=== PATIENT | female | born 1985 | race Caucasian/White ===

== ENCOUNTER 2016-07-03 14:22 | Emergency (ER) | payer SELFPAY ==
[~2016-07-03 14:22] MED LIST: ADV250INH INH; ATOM40CA PO; FOLI1TAB2 PO; IBUP200T45 PO; MONT10TA2 PO; MULTCAP9 PO; PROA1AER IN; QUET20XRTB PO; THIA100TA PO; VIST50CA PO; ZOVI5CRE4 EX
[2016-07-03] MEDS ORDERED: IPRATROPIUM 0.5MG/ALBUTEROL 2.5MG INH SOL UD 3ML (DUONEB)(J7620) As Ordered ONE (15:29)
[2016-07-03] MEDS ORDERED: predniSONE 20 MG TAB As Ordered ONE (15:30)
--- NOTE | 2016-07-03 16:12 | REP ---
Chest two views HISTORY: Cough Comparison: 05/17/2014 The lungs are clear. The heart is normal in size. The pulmonary vasculature is normal in appearance. The bony structure is intact. IMPRESSION: No acute disease. Signed by Robert Tapia MD 07/03/2016 04:03 P
--- NOTE | 2016-07-03 16:21 | EDDOCDS ---
Nurse's Notes [facility] Name: Alpa Kaur Age: 31 yrs Sex: Female : 1985 Arrival Date: 07/03/2016 Time: 14:22 Bed PR Private MD: Jill Headley Diagnosis: Bronchitis, not specified as acute or chronic Presentation: 07/03 14:31 Presenting complaint: Patient states: "passed out" at work, drove to [facility]. States "I ck1 cannot breathe, my asthma is worse". Speaking full sentences without difficulty. Adult Sepsis Screening: The patient does not have new or worsening altered mentation. Patient's respiratory rate is less than 22. Systolic blood pressure is greater than 100. Patient has a qSOFA score of 0- Negative Sepsis Screen. Suicide/Homicide risk assessment- the patient denies having any suicidal and/or homicidal ideations and does not present with any other emotional, behavioral or mental health complaints. 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 Transition of care: patient was not received from another setting of care. 14:31 Acuity: JOEY Level 3 ck1 14:31 Method Of Arrival: Walkin/Carried/Asstd ck1 Triage Assessment: 14:34 General: Appears in no apparent distress, comfortable, Behavior is appropriate for age, ck1 cooperative. Pain: Location: chest Pain currently is 4 out of 10 on a pain scale. HIV screening NA for this visit Offered previously. Neurological: Level of Consciousness is awake, alert, obeys commands, Oriented to person, place, time. Respiratory: Respiratory effort is unlabored, Respiratory pattern is regular, symmetrical. GI: No deficits noted. Derm: Skin is pink, warm & dry. 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 proair inhaler 90 mcg 2 puff every 4 hours as needed for Eye Disorder (Last dose: 07/03/2016 13:33) - PMHx: Asthma; Bipolar disorder; - PSHx: none; - Social history: Smoking status: Patient states was never smoker of tobacco. No barriers to communication noted, The patient speaks fluent Jamaican, Speaks appropriately for age. - Family history: Not pertinent. - : The pt / caregiver states he / she is not on anticoagulants. Home medication list is obtained from the patient. - Exposure Risk Screening:: None identified. Screenin:18 Screening information is obtained from the patient. Fall risk: No risks identified. ck1 Assistance ADL's: requires no assistance with activities of daily living. Abuse/DV Screen: The patient / caregiver reports he/she is: not in a situation that causes fear, pain or injury. Nutritional screening: No deficits noted. Advance Directives: Currently, there is no health care proxy. home support is adequate. Assessment: 16:19 General: Appears in no apparent distress, comfortable, Behavior is appropriate for age, ck1 cooperative. Pain: Denies pain. Neurological: Level of Consciousness is awake, alert, obeys commands, Oriented to person, place, time. Cardiovascular: Rhythm is sinus rhythm. Respiratory: Respiratory effort is unlabored. Derm: Skin is intact, is healthy with good turgor, Skin is pink, warm & dry. Musculoskeletal: Circulation, motion, and sensation intact Range of motion intact in all extremities. Vital Signs: 14:24 BP 132 / 75; Pulse 91; Resp 18 S; Temp 98.7(O); Pulse Ox 99% on R/A; Weight 108.86 kg gr2 (R); Height 5 ft. 5 in. (165.10 cm) (R); Pain 3/10; 16:20 BP 141 / 75; Pulse 93; Resp 18; Temp 98.2(TE); Pulse Ox 97% on R/A; Pain 0/10; ck1 14:24 Body Mass Index 39.94 (108.86 kg, 165.10 cm) gr2 Vitals: 14:24 Log In Time: July 03, 2016 at 14:24. gr2 14:26 RN notified that patient meets Red Flag criteria. gr2 ED Course: 14:24 Patient visited by Jamey Encinas. gr2 14:24 Jill Headley is Private Physician. gr2 14:24 Patient moved to Waiting gr2 14:26 Patient visited by Jamey Encinas. gr2 14:26 Patient visited by Jamey Encinas. gr2 14:27 Patient moved to Pre RCE gr2 14:33 Triage Initiated ck1 14:44 Patient moved to Triage 3 jrd 15:10 Boogie Bashir [facility]. cc10 15:10 Janette Sullivan MD is Attending Physician. cc10 15:10 Patient visited by Boogie Bashir PA-C. cc10 15:10 Patient visited by Boogie Bashir PA-C. cc10 15:19 Patient visited by Boogie Bashir PA-C. cc10 15:27 Patient moved to PR / ead 15:32 Patient visited by Vanessa Yip RN. ck1 16:12 Jill Headley is Referral Physician. cc10 16:19 The patient / caregiver is instructed regarding the plan of care and ED course. ck1 16:19 No IV's were initiated during this patient's visit. No procedures done that require ck1 assistance. 16:20 [facility] [place] Payment Agreement was scanned into [employer] and attached to record. jp5 16:20 Chest, 2 View (pa\\E\\lat) Returned. EDMS Administered Medications: 15:32 Drug: predniSONE 40 mg [prednisone 20 mg tablet (2 tabs)] Route: PO; ck1 15:34 Drug: Albuterol-Ipratropium 3 ml [ipratropium-albuterol 0.5 mg-3 mg(2.5 mg base)/3 mL rs5 nebulization soln (3 mL)] Route: Inhalation; RT: 15:34 Initial Med Neb Given as ordered Patient was instructed and evaluated on procedure rs5 Patient tolerated procedure well without adverse effect. Respiratory: Respiratory effort is even, unlabored, Respiratory pattern is regular symmetrical, Breath sounds are clear bilaterally. Breath sounds are diminished Reports shortness of breath on exertion cough that is productive. Order Results: Radiology Order: Chest, 2 View (pa\\E\\lat) Test: Chest, 2 View (pa\\E\\lat) REASON FOR EXAMINATION: Cough; Chest two views; ; HISTORY: Cough; ; Comparison: 05/17/2014; ; The lungs are clear. The heart is normal in size. The pulmonary vasculature is; normal in appearance. The bony structure is intact.; ; IMPRESSION: No acute disease.; ; ; Signed by; Robert Tapia MD 07/03/2016 04:03 P; Outcome: 16:12 Discharge ordered by Provider. cc10 16:18 Discharge Assessment: Patient awake, alert and oriented x 3. No cognitive and/or ck1 functional deficits noted. Patient verbalized understanding of disposition instructions. patient administered narcotics - no. The following High Risk Discharge criteria are identified: None. Discharged to home ambulatory. Condition: stable. Discharge instructions given to patient, Instructed on discharge instructions, follow up and referral plans. medication usage, Demonstrated understanding of instructions, medications, Pt was receptive of discharge instructions/ teaching. Prescriptions given X 2. No special radiology studies were completed. Property :Personal belongings accompany Pt. 16:21 Patient left the ED. ck1 Signatures: Dispatcher [employer] EDMS Vanessa Yip,RN RN ck1 Diallo Iqbal,RT RT rs5 Jamey Encinas gr2 Tisha Campoverde,RN RN Boogie Hawkins, PA-C PA-C cc10 Hermann Gómez, WENDI WEED COOKING OPERATOR jrd Jose Taveras jp5 MTDD
--- NOTE | 2016-07-03 16:21 | EDDOCDS ---
Physician Documentation [facility] Name: Alpa Kaur Age: 31 yrs Sex: Female : 1985 Arrival Date: 07/03/2016 Time: 14:22 Bed PR Private MD: Jill Headley Disposition: 07/03/16 16:12 Discharged to Home/Self Care. Impression: Bronchitis, not specified as acute or chronic. - Condition is Stable. - Discharge Instructions: Acute Bronchitis. - Prescriptions for Prednisone 20 mg Oral Tablet - take 1 tablet by ORAL route once daily for 5 days; 5 tablet. Albuterol Sulfate 90 mcg/actuation Inhalation HFA Aerosol Inhaler - inhale 2 puff by INHALATION route every 4 hours As needed; 1 Inhaler. - Medication Reconciliation, Work Release Form - 1 day, Local Pharmacy Hours form. - Follow up: Emergency Department; When: As needed; Reason: Worsening of conditions. Follow up: Jill Headley; When: Call to arrange an appointment; Reason: Wound/Symptom Recheck, Recheck today's complaints, Worsening of conditions, Continuance of care. - Problem is new. - Symptoms have improved. Historical: - Allergies: No known drug Allergies; - Home Meds: 1. proair inhaler 90 mcg 2 puff every 4 hours as needed for Eye Disorder (Last dose: 07/03/2016 13:33) - PMHx: Asthma; Bipolar disorder; - PSHx: none; - Social history: Smoking status: Patient states was never smoker of tobacco. No barriers to communication noted, The patient speaks fluent Romansh, Speaks appropriately for age. - Family history: Not pertinent. - : The pt / caregiver states he / she is not on anticoagulants. Home medication list is obtained from the patient. - Exposure Risk Screening:: None identified. 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 5 in. (165.10 cm) (R); Pain 3/10; 16:20 BP 141 / 75; Pulse 93; Resp 18; Temp 98.2(TE); Pulse Ox 97% on R/A; Pain 0/10; ck1 14:24 Body Mass Index 39.94 (108.86 kg, 165.10 cm) gr2 MDM: 15:26 Albuterol-Ipratropium 3 ml Inhalation once ordered. cc10 15:26 Call Respiratory ordered. cc10 15:26 predniSONE 40 mg PO once; administer with food or milk ordered. cc10 15:27 Chest, 2 View (pa\E\lat) Ordered. EDMS 15:27 Call Respiratory complete. ead 16:20 [facility] Payment Agreement was scanned into [employer] and attached to record. jp5 16:21 Financial registration complete. jp5 Administered Medications: 15:32 Drug: predniSONE 40 mg [prednisone 20 mg tablet (2 tabs)] Route: PO; ck1 15:34 Drug: Albuterol-Ipratropium 3 ml [ipratropium-albuterol 0.5 mg-3 mg(2.5 mg base)/3 mL rs5 nebulization soln (3 mL)] Route: Inhalation; Signatures: Dispatcher [employer] EDMS Vanessa YipRN RN ck1 Tisha Campoverde,RN RN ead Boogie Bashir, PAChristineC PA-C cc10 Jose Taveras jp5 Diallo Iqbal RT rs5 The chart was reviewed and I authenticate all verbal orders and agree with the evaluation and treatment provided.Attachments: 16:20 [facility] Payment Agreement jp5 MTDD
--- NOTE | 2016-07-05 17:22 | EDDOCDS ---
Physician Documentation [facility] Name: Alpa Kaur Age: 31 yrs Sex: Female : 1985 Arrival Date: 07/03/2016 Time: 14:22 Bed PR Private MD: Jill Headley Disposition: 07/03/16 16:12 Discharged to Home/Self Care. Impression: Bronchitis, not specified as acute or chronic. - Condition is Stable. - Discharge Instructions: Acute Bronchitis. - Prescriptions for Prednisone 20 mg Oral Tablet - take 1 tablet by ORAL route once daily for 5 days; 5 tablet. Albuterol Sulfate 90 mcg/actuation Inhalation HFA Aerosol Inhaler - inhale 2 puff by INHALATION route every 4 hours As needed; 1 Inhaler. - Medication Reconciliation, Work Release Form - 1 day, Local Pharmacy Hours form. - Follow up: Emergency Department; When: As needed; Reason: Worsening of conditions. Follow up: Jill Headley; When: Call to arrange an appointment; Reason: Wound/Symptom Recheck, Recheck today's complaints, Worsening of conditions, Continuance of care. - Problem is new. - Symptoms have improved. Historical: - Allergies: No known drug Allergies; - Home Meds: 1. proair inhaler 90 mcg 2 puff every 4 hours as needed for Eye Disorder (Last dose: 07/03/2016 13:33) - PMHx: Asthma; Bipolar disorder; - PSHx: none; - Social history: Smoking status: Patient states was never smoker of tobacco. No barriers to communication noted, The patient speaks fluent Ukrainian, Speaks appropriately for age. - Family history: Not pertinent. - : The pt / caregiver states he / she is not on anticoagulants. Home medication list is obtained from the patient. - Exposure Risk Screening:: None identified. 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 5 in. (165.10 cm) (R); Pain 3/10; 16:20 BP 141 / 75; Pulse 93; Resp 18; Temp 98.2(TE); Pulse Ox 97% on R/A; Pain 0/10; ck1 14:24 Body Mass Index 39.94 (108.86 kg, 165.10 cm) gr2 MDM: 15:26 Albuterol-Ipratropium 3 ml Inhalation once ordered. cc10 15:26 Call Respiratory ordered. cc10 15:26 predniSONE 40 mg PO once; administer with food or milk ordered. cc10 15:27 Chest, 2 View (pa\E\lat) Ordered. EDMS 15:27 Call Respiratory complete. ead 16:20 [facility] Payment Agreement was scanned into [employer] and attached to record. jp5 16:21 Financial registration complete. jp5 07/04 10:38 T-Sheet-- Draft Copy was scanned into [employer] and attached to record. gb Administered Medications: 07/03 15:32 Drug: predniSONE 40 mg [prednisone 20 mg tablet (2 tabs)] Route: PO; ck1 15:34 Drug: Albuterol-Ipratropium 3 ml [ipratropium-albuterol 0.5 mg-3 mg(2.5 mg base)/3 mL rs5 nebulization soln (3 mL)] Route: Inhalation; Signatures: Dispatcher [employer] EDMS Alethea Dove, Reg Reg gb Vanessa Yip,RN RN ck1 Tisha CampoverdeRN RN Boogie Hawkins, PA-C PA-C cc10 Jose Taveras jp5 Diallo Iqbal RT rs5 The chart was reviewed and I authenticate all verbal orders and agree with the evaluation and treatment provided.Attachments: 16:20 [facility] Payment Agreement jp5 07/04 10:38 T-Sheet-- Draft Copy gb Chart Complete MTDD
--- NOTE | 2016-07-05 17:22 | EDDOCDS ---
Nurse's Notes [facility] Name: Alpa Kaur Age: 31 yrs Sex: Female : 1985 Arrival Date: 07/03/2016 Time: 14:22 Bed PR Private MD: Jill Headley Diagnosis: Bronchitis, not specified as acute or chronic Presentation: 07/03 14:31 Presenting complaint: Patient states: "passed out" at work, drove to [facility]. States "I ck1 cannot breathe, my asthma is worse". Speaking full sentences without difficulty. Adult Sepsis Screening: The patient does not have new or worsening altered mentation. Patient's respiratory rate is less than 22. Systolic blood pressure is greater than 100. Patient has a qSOFA score of 0- Negative Sepsis Screen. Suicide/Homicide risk assessment- the patient denies having any suicidal and/or homicidal ideations and does not present with any other emotional, behavioral or mental health complaints. 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 Transition of care: patient was not received from another setting of care. 14:31 Acuity: JOEY Level 3 ck1 14:31 Method Of Arrival: Walkin/Carried/Asstd ck1 Triage Assessment: 14:34 General: Appears in no apparent distress, comfortable, Behavior is appropriate for age, ck1 cooperative. Pain: Location: chest Pain currently is 4 out of 10 on a pain scale. HIV screening NA for this visit Offered previously. Neurological: Level of Consciousness is awake, alert, obeys commands, Oriented to person, place, time. Respiratory: Respiratory effort is unlabored, Respiratory pattern is regular, symmetrical. GI: No deficits noted. Derm: Skin is pink, warm & dry. 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 proair inhaler 90 mcg 2 puff every 4 hours as needed for Eye Disorder (Last dose: 07/03/2016 13:33) - PMHx: Asthma; Bipolar disorder; - PSHx: none; - Social history: Smoking status: Patient states was never smoker of tobacco. No barriers to communication noted, The patient speaks fluent Panamanian, Speaks appropriately for age. - Family history: Not pertinent. - : The pt / caregiver states he / she is not on anticoagulants. Home medication list is obtained from the patient. - Exposure Risk Screening:: None identified. Screenin:18 Screening information is obtained from the patient. Fall risk: No risks identified. ck1 Assistance ADL's: requires no assistance with activities of daily living. Abuse/DV Screen: The patient / caregiver reports he/she is: not in a situation that causes fear, pain or injury. Nutritional screening: No deficits noted. Advance Directives: Currently, there is no health care proxy. home support is adequate. Assessment: 16:19 General: Appears in no apparent distress, comfortable, Behavior is appropriate for age, ck1 cooperative. Pain: Denies pain. Neurological: Level of Consciousness is awake, alert, obeys commands, Oriented to person, place, time. Cardiovascular: Rhythm is sinus rhythm. Respiratory: Respiratory effort is unlabored. Derm: Skin is intact, is healthy with good turgor, Skin is pink, warm & dry. Musculoskeletal: Circulation, motion, and sensation intact Range of motion intact in all extremities. Vital Signs: 14:24 BP 132 / 75; Pulse 91; Resp 18 S; Temp 98.7(O); Pulse Ox 99% on R/A; Weight 108.86 kg gr2 (R); Height 5 ft. 5 in. (165.10 cm) (R); Pain 3/10; 16:20 BP 141 / 75; Pulse 93; Resp 18; Temp 98.2(TE); Pulse Ox 97% on R/A; Pain 0/10; ck1 14:24 Body Mass Index 39.94 (108.86 kg, 165.10 cm) gr2 Vitals: 14:24 Log In Time: July 03, 2016 at 14:24. gr2 14:26 RN notified that patient meets Red Flag criteria. gr2 ED Course: 14:24 Patient visited by Jamey Encinas. gr2 14:24 Jill Headley is Private Physician. gr2 14:24 Patient moved to Waiting gr2 14:26 Patient visited by Jamey Encinas. gr2 14:26 Patient visited by Jamey Encinas. gr2 14:27 Patient moved to Pre RCE gr2 14:33 Triage Initiated ck1 14:44 Patient moved to Triage 3 jrd 15:10 Boogie Bashir [facility]-C [facility]. cc10 15:10 Janette Sullivan MD is Attending Physician. cc10 15:10 Patient visited by Boogie Bashir PA-C. cc10 15:10 Patient visited by Boogie Bashir PA-C. cc10 15:19 Patient visited by Boogie Bashir PA-C. cc10 15:27 Patient moved to PR ead 15:32 Patient visited by Vanessa Yip RN. ck1 16:12 Jill Headley is Referral Physician. cc10 16:19 The patient / caregiver is instructed regarding the plan of care and ED course. ck1 16:19 No IV's were initiated during this patient's visit. No procedures done that require ck1 assistance. 16:20 [facility] Payment Agreement was scanned into [employer] and attached to record. jp5 16:20 Chest, 2 View (pa\\E\\lat) Returned. EDMS 16:26 Patient name changed from Alpa\\S\\R\\S\\House\\S\\ to Alpa\\S\\Azul\\S\\House. EDMS 01 10:38 T-Sheet-- Draft Copy was scanned into [employer] and attached to record. gb Administered Medications: 07/03 15:32 Drug: predniSONE 40 mg [prednisone 20 mg tablet (2 tabs)] Route: PO; ck1 15:34 Drug: Albuterol-Ipratropium 3 ml [ipratropium-albuterol 0.5 mg-3 mg(2.5 mg base)/3 mL rs5 nebulization soln (3 mL)] Route: Inhalation; RT: 15:34 Initial Med Neb Given as ordered Patient was instructed and evaluated on procedure rs5 Patient tolerated procedure well without adverse effect. Respiratory: Respiratory effort is even, unlabored, Respiratory pattern is regular symmetrical, Breath sounds are clear bilaterally. Breath sounds are diminished Reports shortness of breath on exertion cough that is productive. Order Results: Radiology Order: Chest, 2 View (pa\\E\\lat) Test: Chest, 2 View (pa\\E\\lat) REASON FOR EXAMINATION: Cough; Chest two views; ; HISTORY: Cough; ; Comparison: 05/17/2014; ; The lungs are clear. The heart is normal in size. The pulmonary vasculature is; normal in appearance. The bony structure is intact.; ; IMPRESSION: No acute disease.; ; ; Signed by; Robert Tapia MD 07/03/2016 04:03 P; Outcome: 16:12 Discharge ordered by Provider. cc10 16:18 Discharge Assessment: Patient awake, alert and oriented x 3. No cognitive and/or ck1 functional deficits noted. Patient verbalized understanding of disposition instructions. patient administered narcotics - no. The following High Risk Discharge criteria are identified: None. Discharged to home ambulatory. Condition: stable. Discharge instructions given to patient, Instructed on discharge instructions, follow up and referral plans. medication usage, Demonstrated understanding of instructions, medications, Pt was receptive of discharge instructions/ teaching. Prescriptions given X 2. No special radiology studies were completed. Property :Personal belongings accompany Pt. 16:21 Patient left the ED. ck1 Signatures: Dispatcher [employer] EDMS Alethea Dove, Reg Reg gb Vanessa Yip,RN RN ck1 Diallo Iqbal,RT RT rs5 Jamey Encinas gr2 Tisha Campoverde,RN RN Boogie Hawkins, PA-C PA-C cc10 Hermann Gómez, PROPERTY ECONOMIST PROPERTY ECONOMIST Jose Barakat jp5 Chart Complete MTDD
--- NOTE | 2016-07-05 17:22 | EDDOCDS ---
Physician Documentation [facility] Name: Alpa Kaur Age: 31 yrs Sex: Female : 1985 Arrival Date: 07/03/2016 Time: 14:22 Bed PR Private MD: Jill Headley Disposition: 07/03/16 16:12 Discharged to Home/Self Care. Impression: Bronchitis, not specified as acute or chronic. - Condition is Stable. - Discharge Instructions: Acute Bronchitis. - Prescriptions for Prednisone 20 mg Oral Tablet - take 1 tablet by ORAL route once daily for 5 days; 5 tablet. Albuterol Sulfate 90 mcg/actuation Inhalation HFA Aerosol Inhaler - inhale 2 puff by INHALATION route every 4 hours As needed; 1 Inhaler. - Medication Reconciliation, Work Release Form - 1 day, Local Pharmacy Hours form. - Follow up: Emergency Department; When: As needed; Reason: Worsening of conditions. Follow up: Jill Headley; When: Call to arrange an appointment; Reason: Wound/Symptom Recheck, Recheck today's complaints, Worsening of conditions, Continuance of care. - Problem is new. - Symptoms have improved. Historical: - Allergies: No known drug Allergies; - Home Meds: 1. proair inhaler 90 mcg 2 puff every 4 hours as needed for Eye Disorder (Last dose: 07/03/2016 13:33) - PMHx: Asthma; Bipolar disorder; - PSHx: none; - Social history: Smoking status: Patient states was never smoker of tobacco. No barriers to communication noted, The patient speaks fluent Bengali, Speaks appropriately for age. - Family history: Not pertinent. - : The pt / caregiver states he / she is not on anticoagulants. Home medication list is obtained from the patient. - Exposure Risk Screening:: None identified. 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 5 in. (165.10 cm) (R); Pain 3/10; 16:20 BP 141 / 75; Pulse 93; Resp 18; Temp 98.2(TE); Pulse Ox 97% on R/A; Pain 0/10; ck1 14:24 Body Mass Index 39.94 (108.86 kg, 165.10 cm) gr2 MDM: 15:26 Albuterol-Ipratropium 3 ml Inhalation once ordered. cc10 15:26 Call Respiratory ordered. cc10 15:26 predniSONE 40 mg PO once; administer with food or milk ordered. cc10 15:27 Chest, 2 View (pa\E\lat) Ordered. EDMS 15:27 Call Respiratory complete. ead 16:20 [facility] Payment Agreement was scanned into [employer] and attached to record. jp5 16:21 Financial registration complete. jp5 07/04 10:38 T-Sheet-- Draft Copy was scanned into [employer] and attached to record. gb Administered Medications: 07/03 15:32 Drug: predniSONE 40 mg [prednisone 20 mg tablet (2 tabs)] Route: PO; ck1 15:34 Drug: Albuterol-Ipratropium 3 ml [ipratropium-albuterol 0.5 mg-3 mg(2.5 mg base)/3 mL rs5 nebulization soln (3 mL)] Route: Inhalation; Signatures: Dispatcher [employer] EDMS Alethea Dove, Reg Reg gb Vanessa Yip,RN RN ck1 Tisha CampoverdeRN RN Boogie Hawkins, PA-C PA-C cc10 Jose Taveras jp5 Diallo Iqbal RT rs5 The chart was reviewed and I authenticate all verbal orders and agree with the evaluation and treatment provided.Attachments: 16:20 [facility] Payment Agreement jp5 07/04 10:38 T-Sheet-- Draft Copy gb Chart Complete MTDD
== END 2016-07-03 16:21 | disposition home or self-care (01) ==
LOC: M ED 14:22
DX: J20.9 Acute bronchitis, unspecified (principal); J45.909 Unspecified asthma, uncomplicated; F31.9 Bipolar disorder, unspecified; Z79.51 Long term (current) use of inhaled steroids

== ENCOUNTER 2016-11-13 14:03 | Emergency (ER) | payer MEDICAID, OTHER, SELFPAY ==
[~2016-11-13] VITALS: Ht 165.1 cm; Wt 113.4 kg
[2016-11-13] MEDS ORDERED: NS 1,000 ML IV ONE (15:00)
[2016-11-13 15:29] LABS: BASO % 0.3 % (0.0-1.0); EOS # 0.2 K/mm3 (0.0-0.50); EOS % 2.7 % (0.0-3.0); LARGE UNSTAINED CELL # 0.1 K/mm3 (0.0-0.4); LARGE UNSTAINED CELL % 1.8 % (0.0-4.0); LYMPH # 1.8 K/mm3 (1.5-6.5); LYMPH % 31.8 % (24.0-44.0); MEAN CORPUSCULAR HEMOGLOBIN 30.9 pg (27.0-33.0); MEAN CORPUSCULAR HGB CONC 33.8 g/dl (32.0-36.5); MEAN CORPUSCULAR VOLUME 91.4 fl (80.0-96.0); MONO # 0.3 K/mm3 (0.0-0.8); MONO % 6.1 % (0.0-5.0); NEUTROPHILS # 3.2 K/mm3 (1.8-7.7); NEUTROPHILS % 57.3 % (36.0-66.0); PLATELET COUNT, AUTOMATED 361 k/mm3 (150-450); RED CELL DISTRIBUTION WIDTH 12.1 % (11.5-14.5); WHITE BLOOD COUNT 5.6 K/mm3 (4.0-10.0)
[2016-11-13 15:35] LABS: ANION GAP 7 MEQ/L (8-16); BLOOD UREA NITROGEN 8 MG/DL (7-18); CALCIUM LEVEL 8.9 MG/DL (8.5-10.1); CARBON DIOXIDE LEVEL 30 MEQ/L (21-32); CHLORIDE LEVEL 103 MEQ/L (98-107); GLOMERULAR FILTRATION RATE > 60.0 (>60); GLUCOSE, FASTING 83 MG/DL (70-105); HCG, SERUM QUANTITATIVE < 1.0 MIU/ML; POTASSIUM SERUM 3.9 MEQ/L (3.5-5.1); SODIUM LEVEL 140 MEQ/L (136-145)
--- NOTE | 2016-11-13 15:59 | REP ---
PELVIC ULTRASOUND: Real-time sonographic evaluation of the pelvis was performed utilizing transabdominal and endovaginal technique. The urinary bladder is empty. The uterus measures 6.8 x 3.6 x 3.6 cm. Endometrial thickness is 6 mm. Right ovary measures 4.3 x 3.8 x 4.7 cm and left ovary 3.8 x 2.5 x 1.7 cm. There is a complex cyst in the right ovary with 3.3 x 2.9 x 3.2 cm. Exophytic complex cystic structure along the right ovary measures 2.9 x 3.3 x 2.8 cm. There is no free fluid. There is no evidence of ovarian torsion with blood flow seen in each ovary with duplex Doppler evaluation. IMPRESSION: Endometrial thickness 6 mm. Two complex cystic structures of the right ovary as discussed above without torsion. Recommend followup ultrasound in 3 months. Signed by Sánchez Hanson MD 11/13/2016 07:14 P
[2016-11-13 16:07] VITALS: BP 126/75
--- NOTE | 2016-11-16 15:07 | ED PDOC ---
Post-Departure Follow-Up dr archer faxed formal report of pelvic us for fu Kassi Conner MD Nov 16, 2016 15:07
== END 2016-11-13 16:11 | disposition home or self-care (01) ==
LOC: M ED 14:21
DX: N92.0 Excessive and frequent menstruation with regular cycle (principal); N83.202 Unspecified ovarian cyst, left side

== ENCOUNTER → 2017-02-13 | Outpatient (CLI) | payer OTHER ==
[~2017-02-13] MED LIST changes: -FOLI1TAB2 PO; +FOLI1TAB4 PO; -PROA1AER IN; +PROAAER10 IN
[2017-02-13 15:48] LABS: ALBUMIN 3.8 GM/DL (3.2-5.2); ALBUMIN/GLOBULIN RATIO 1.06 (1.00-1.93); ALKALINE PHOSPHATASE 53 U/L (45-117); ALT/SGPT 25 U/L (12-78); ANION GAP 6 MEQ/L (8-16); AST/SGOT 15 U/L (15-37); BILIRUBIN,TOTAL 0.2 MG/DL (0.2-1.0); BLOOD UREA NITROGEN 6 MG/DL (7-18); CALCIUM LEVEL 8.8 MG/DL (8.5-10.1); CARBON DIOXIDE LEVEL 30 MEQ/L (21-32); CHLORIDE LEVEL 104 MEQ/L (98-107); CREATININE FOR GFR 0.74 MG/DL (0.55-1.02); GLOMERULAR FILTRATION RATE > 60.0 (>60); GLUCOSE, FASTING 93 MG/DL (70-105); POTASSIUM SERUM 4.1 MEQ/L (3.5-5.1); SODIUM LEVEL 140 MEQ/L (136-145); TOTAL PROTEIN 7.4 GM/DL (6.4-8.2)
[2017-02-13 16:16] LABS: BASO % 0.4 % (0.0-1.0); EOS # 0.1 K/mm3 (0.0-0.50); EOS % 1.6 % (0.0-3.0); LARGE UNSTAINED CELL # 0.1 K/mm3 (0.0-0.4); LARGE UNSTAINED CELL % 2.3 % (0.0-4.0); LYMPH # 1.6 K/mm3 (1.5-6.5); LYMPH % 27.8 % (24.0-44.0); MEAN CORPUSCULAR HEMOGLOBIN 30.7 pg (27.0-33.0); MEAN CORPUSCULAR VOLUME 90.2 fl (80.0-96.0); MONO # 0.4 K/mm3 (0.0-0.8); NEUTROPHILS # 3.1 K/mm3 (1.8-7.7); NEUTROPHILS % 59.9 % (36.0-66.0); PLATELET COUNT, AUTOMATED 289 k/mm3 (150-450); RED CELL DISTRIBUTION WIDTH 12.2 % (11.5-14.5); WHITE BLOOD COUNT 5.2 K/mm3 (4.0-10.0)
[2017-02-23 10:11] LABS: GC Carboxy THC 69 ng/mL (Cutoff=10)
== END ==
LOC: M LAB 13:44
PROVIDERS: ATTEND Registered Nurse Psychiatric/Mental Health
DX: F31.81 Bipolar II disorder (principal)

== ENCOUNTER 2017-05-09 16:21 | Emergency (ER) | payer OTHER ==
[~2017-05-09] VITALS: Ht 165.1 cm; Wt 118.0 kg
[2017-05-09] MEDS ORDERED: TRAZ1TAB14 PO (16:40)
[2017-05-09] MEDS ORDERED: ADDE10CA3 PO (16:40)
[2017-05-09] MEDS ORDERED: ALBUTEROL SULFATE 2.5 MG/0.5 ML INH NEB SOLN NEB ONE (18:00)
[2017-05-09] MEDS ORDERED: ALBUTEROL 90 MCG/ACT 8GM HFA INHALER INH ONE (18:15)
[2017-05-09] MEDS ORDERED: VENTAER IN (18:42)
[2017-05-09 18:54] VITALS: BP 127/75
--- NOTE | 2017-05-09 18:57 | REP ---
Clinical: Asthma with shortness of breath. Comparison: 07/03/2016 . Technique: PA and lateral. Findings: The mediastinum and cardiac silhouette are normal. The lung zeng are clear and without acute consolidation, effusion, or pneumothorax. The skeletal structures are intact and normal. Impression: 1. No acute cardiopulmonary process. Signed by Lazaro Lehman MD 05/09/2017 06:49 P
== END 2017-05-09 18:58 | disposition home or self-care (01) ==
LOC: M ED 16:21
DX: R06.00 Dyspnea, unspecified (principal); Z76.0 Encounter for issue of repeat prescription; J45.909 Unspecified asthma, uncomplicated; F31.9 Bipolar disorder, unspecified; F41.9 Anxiety disorder, unspecified; Z79.899 Other long term (current) drug therapy

== ENCOUNTER 2017-06-11 08:26 | Emergency (ER) | payer OTHER ==
[2017-06-11] MEDS: predniSONE 20 MG TAB PO (08:45)
[2017-06-11] MEDS: IPRATROPIUM 0.5MG/ALBUTEROL 2.5MG INH SOL UD 3ML (DUONEB)(J7620) NEB ×2 (08:48→08:52)
== END 2017-06-11 09:36 | disposition home or self-care (01) ==
LOC: M ED 08:26
DX: J45.901 Unspecified asthma with (acute) exacerbation (principal)
CPT/HCPCS: 71020

== ENCOUNTER 2017-10-28 18:59 | Emergency (ER) | payer OTHER ==
[2017-10-28] MEDS: ALBUTEROL SULFATE 2.5 MG/0.5 ML INH NEB SOLN NEB (19:47)
== END 2017-10-28 20:25 | disposition home or self-care (01) ==
LOC: M ED 18:59
DX: J45.901 Unspecified asthma with (acute) exacerbation (principal); K21.9 Gastro-esophageal reflux disease without esophagitis; F41.9 Anxiety disorder, unspecified; F33.9 Major depressive disorder, recurrent, unspecified; F90.9 Attention-deficit hyperactivity disorder, unspecified type; Z79.899 Other long term (current) drug therapy
CPT/HCPCS: 94640

== ENCOUNTER 2017-11-14 11:45 | Emergency (ER) | payer OTHER ==
[2017-11-14] MEDS: ALBUTEROL SULFATE 2.5 MG/0.5 ML INH NEB SOLN NEB (13:06)
== END 2017-11-14 13:43 | disposition home or self-care (01) ==
LOC: M ED 11:45
DX: J45.909 Unspecified asthma, uncomplicated (principal); K21.9 Gastro-esophageal reflux disease without esophagitis; R00.2 Palpitations; F90.9 Attention-deficit hyperactivity disorder, unspecified type; F31.9 Bipolar disorder, unspecified; Z79.899 Other long term (current) drug therapy
CPT/HCPCS: 93005

== ENCOUNTER → 2017-12-22 | Outpatient (CLI) | payer OTHER ==
[2017-12-22 10:44] LABS: BASO % 0.6 % (0.0-1.0); EOS # 0.2 10^3/uL (0.0-0.50); EOS % 2.4 % (0.0-3.0); HEMATOCRIT 35.3 % (36.0-47.0); IMMATURE GRANULOCYTE % 0.8 % (0-3.0); LYMPH # 1.5 10^3/uL (1.5-4.5); LYMPH % 21.3 % (24.0-44.0); MEAN CORPUSCULAR HEMOGLOBIN 30.4 pg (27.0-33.0); MEAN CORPUSCULAR VOLUME 89.4 fl (80.0-96.0); MONO # 0.7 10^3/uL (0.0-0.8); NEUTROPHILS # 4.6 10^3/uL (1.8-7.7); NEUTROPHILS % 64.9 % (36.0-66.0); PLATELET COUNT, AUTOMATED 354 10^3/uL (150-450); RED BLOOD COUNT 3.95 10^6/uL (4.00-5.40); RED CELL DISTRIBUTION WIDTH 12.5 % (11.5-14.5); WHITE BLOOD COUNT 7.1 10^3/uL (4.0-10.0)
[2017-12-22 11:14] LABS: PTH INTACT 54.8 PG/ML (18.5-88.0); TOTAL 25(OH) VITAMIN D 14.2 NG/ML (30.0-100.0)
[2017-12-22 11:26] LABS: ALBUMIN 3.6 GM/DL (3.2-5.2); ALBUMIN/GLOBULIN RATIO 1.03 (1.00-1.93); ALKALINE PHOSPHATASE 63 U/L (45-117); ALT/SGPT 33 U/L (12-78); ANION GAP 8 MEQ/L (8-16); AST/SGOT 16 U/L (7-37); BILIRUBIN,TOTAL 0.3 MG/DL (0.2-1.0); BLOOD UREA NITROGEN 9 MG/DL (7-18); CALCIUM LEVEL 8.7 MG/DL (8.5-10.1); CARBON DIOXIDE LEVEL 27 MEQ/L (21-32); CHLORIDE LEVEL 108 MEQ/L (98-107); CHOLESTEROL LEVEL 176 MG/DL (<200); CHOLESTEROL RISK RATIO 3.384 (<5); CREATININE FOR GFR 0.76 MG/DL (0.55-1.30); GLOMERULAR FILTRATION RATE > 60.0 (>60); GLUCOSE, FASTING 82 MG/DL (70-100); HDL CHOLESTEROL 52 MG/DL (>40); LDL CHOLESTEROL 89.8 MG/DL (<100); NON-HDL-C 124 MG/DL; POTASSIUM SERUM 4.2 MEQ/L (3.5-5.1); SODIUM LEVEL 143 MEQ/L (136-145); TOTAL PROTEIN 7.1 GM/DL (6.4-8.2); TRIGLYCERIDES LEVEL 171 MG/DL (<150)
[2017-12-22 11:41] LABS: ESTIMATED AVERAGE GLUCOSE 94 MG/DL (60-110); HEMOGLOBIN A1c 4.9 %
== END ==
LOC: M LAB 09:48
DX: Z13.228 Encounter for screening for other metabolic disorders (principal)
CPT/HCPCS: 84443

== ENCOUNTER 2018-09-13 01:12 | Emergency (ER) | payer OTHER ==
[~2018-09-13] VITALS: Ht 165.1 cm; Wt 131.8 kg
[~2018-09-13 01:12] MED LIST changes: +ADDE10CA3 PO; +ADDE1TAB14 PO; +ADV100INH INH; +FLON1SPR; +FOLI1TAB11 PO; -FOLI1TAB4 PO; +HYDR-3363; +PRED20TA PO; -QUET20XRTB PO; +SERO200T43 PO; +TRAZ1TAB14 PO; +VENTAER IN; +VENTAER INH; +ZYRT10CA PO
[2018-09-13 03:00] VITALS: BP 120/74
[2018-09-13] MEDS ORDERED: TETANUS/DIPHTHERIA TOX ADSORB ADULT 0.5ML SYR/VIAL (90714) IM ONE (03:30)
== END 2018-09-13 04:25 | disposition home or self-care (01) ==
LOC: EDBD 01:12 → M ED 01:12
DX: S81.812A Laceration without foreign body, left lower leg, initial encounter (principal); W45.8XXA Other foreign body or object entering through skin, initial encounter; Y92.099 Unspecified place in other non-institutional residence as the place of occurrence of the external cause; Y93.9 Activity, unspecified; Y99.9 Unspecified external cause status; F31.9 Bipolar disorder, unspecified; Z79.899 Other long term (current) drug therapy

== ENCOUNTER → 2018-10-25 | Outpatient (REF) | payer OTHER ==
[2018-10-30 00:07] LABS: HPV HYBRID CAPTURE II Negative (Negative)
== END ==
LOC: M SFHCPLAZ 13:18
PROVIDERS: ATTEND Nurse Practitioner Family
DX: R87.615 Unsatisfactory cytologic smear of cervix (principal); S81.802S Unspecified open wound, left lower leg, sequela; X58.XXXA Exposure to other specified factors, initial encounter; Y92.89 Other specified places as the place of occurrence of the external cause; Z12.4 Encounter for screening for malignant neoplasm of cervix

== ENCOUNTER → 2018-12-06 | Outpatient (CLI) | payer OTHER ==
[2018-12-06 09:12] LABS: BASO % 0.5 % (0.0-1.0); EOS # 0.4 10^3/uL (0.0-0.50); EOS % 6.3 % (0.0-3.0); HEMOGLOBIN 12.3 g/dl (12.0-15.5); LYMPH # 1.6 10^3/uL (1.5-4.5); LYMPH % 27.1 % (24.0-44.0); MEAN CORPUSCULAR HEMOGLOBIN 28.9 pg (27.0-33.0); MEAN CORPUSCULAR HGB CONC 33.2 g/dl (32.0-36.5); MEAN CORPUSCULAR VOLUME 87.1 fl (80.0-96.0); MONO # 0.5 10^3/uL (0.0-0.8); NEUTROPHILS # 3.4 10^3/uL (1.8-7.7); NEUTROPHILS % 56.8 % (36.0-66.0); PLATELET COUNT, AUTOMATED 346 10^3/uL (150-450); RED BLOOD COUNT 4.25 10^6/uL (4.00-5.40); WHITE BLOOD COUNT 5.9 10^3/uL (4.0-10.0)
[2018-12-06 09:42] LABS: ALBUMIN 3.6 GM/DL (3.2-5.2); ALT/SGPT 29 U/L (12-78); BILIRUBIN,TOTAL 0.4 MG/DL (0.2-1.0); BLOOD UREA NITROGEN 9 MG/DL (7-18); CALCIUM LEVEL 8.9 MG/DL (8.5-10.1); CARBON DIOXIDE LEVEL 28 MEQ/L (21-32); CHLORIDE LEVEL 108 MEQ/L (98-107); CHOLESTEROL LEVEL 164 MG/DL (<200); CHOLESTEROL RISK RATIO 3.346 (<5); CREATININE FOR GFR 0.75 MG/DL (0.55-1.30); GLOMERULAR FILTRATION RATE > 60.0 (>60); GLUCOSE, FASTING 91 MG/DL (70-100); HDL CHOLESTEROL 49 MG/DL (>40); LDL CHOLESTEROL 89 MG/DL (<100); NON-HDL-C 115 MG/DL; POTASSIUM SERUM 4.4 MEQ/L (3.5-5.1); SODIUM LEVEL 140 MEQ/L (136-145); TOTAL PROTEIN 7.2 GM/DL (6.4-8.2); TRIGLYCERIDES LEVEL 128 MG/DL (<150)
[2018-12-06 10:40] LABS: HCG, SERUM QUALITATIVE NEGATIVE (NEGATIVE)
[2018-12-06 10:47] LABS: TOTAL 25(OH) VITAMIN D 25.2 NG/ML (30.0-100.0)
== END ==
LOC: M LAB 08:27
DX: Z51.81 Encounter for therapeutic drug level monitoring (principal); Z13.1 Encounter for screening for diabetes mellitus

== ENCOUNTER → 2020-01-19 | Emergency (ER) | payer OTHER ==
[~2020-01-19] MED LIST changes: -ATOM40CA PO; +ATOM40CA16 PO; -MONT10TA2 PO; +MONT10TA4 PO
== END | disposition home or self-care (01) ==
LOC: M ED 14:00
DX: R51 Headache (principal); F90.9 Attention-deficit hyperactivity disorder, unspecified type; J45.909 Unspecified asthma, uncomplicated; Z79.51 Long term (current) use of inhaled steroids; Z79.899 Other long term (current) drug therapy

== ENCOUNTER → 2020-08-30 | Outpatient (CLI) | payer OTHER ==
[~2020-08-30] MED LIST changes: +MONT10TA10 PO; -MONT10TA4 PO
--- NOTE | 2020-08-30 14:26 | REP ---
INDICATION: NECK PAIN, RADIATING TO LEFT ARM. COMPARISON: Comparison cervical spine soft tissue neck CT study September 01, 2011.. TECHNIQUE: Eight views of the cervical spine including flexion extension lateral radiographs. FINDINGS: Lateral views demonstrate preserved vertebral body heights and normal alignment. There is degenerative disc narrowing of the anterior discogenic spurring and some posterior osteophytic ridging at C5-6. Flexion extension lateral views show no subluxation or instability. Prevertebral soft tissues are unremarkable. Oblique images demonstrate intact neural foramina bilaterally at each cervical level and normally aligned facets. AP and open-mouth odontoid views are unremarkable. The C7 vertebral body is not clearly visualized on lateral radiographs but is unremarkable on the other projections. IMPRESSION: Degenerative disc disease most pronounced at C5-6. Otherwise negative. <Electronically signed by Jose Davies > 08/30/20 [id number]
== END ==
LOC: M WUC 13:58
PROVIDERS: ATTEND Physician Assistant
DX: M50.322 Other cervical disc degeneration at C5-C6 level (principal)

== ENCOUNTER → 2020-10-01 | Outpatient (CLI) | payer OTHER ==
--- NOTE | 2020-10-01 15:12 | REP ---
INDICATION: DYSMENORRHEA COMPARISON: None. TECHNIQUE: Transabdominal pelvic ultrasound followed by transvaginal examination for better evaluation of the endometrium and adnexa with color Doppler evaluation of the ovaries. FINDINGS: Bladder is unremarkable and measures 7.2 x 4.2 x 3.8 cm. Heterogeneous anteverted uterus measures 7.6 x 3.7 x 3.8 cm. The endometrial complex measures 8 mm thickness. No discrete uterine or endometrial abnormalities are appreciated.. Small amount of free fluid in the pelvis is nonspecific. Right ovary measures 4.7 x 3.8 x 4.2 cm (RI 0.45) and includes 3.8 x 3.2 x 3.4 cm complex hypoechoic lesion. Left ovary is normal and measures 2.3 x 2.0 x 1.7 cm (RI 0.60). IMPRESSION: Normal uterus and left ovary. Complex hypoechoic cyst versus mass in the right ovary. Consider follow-up examination in 4-6 weeks to evaluate for resolution or contrast-enhanced CT of the abdomen and pelvis if the patient remains symptomatic. <Electronically signed by Lazaro Lehman > 10/01/20 [id number]
--- NOTE | 2020-10-01 15:18 | REP ---
INDICATION: DYSMENORRHEA COMPARISON: None. TECHNIQUE: Real time B-mode owen scale ultrasound examination using curved array transducer. FINDINGS: Directed ultrasound examination along the anterior abdominal wall demonstrates normal subcutaneous tissues and musculature. No fluid collection, mass lesion, abnormality or hernia pre shaded. IMPRESSION: Unremarkable examination. No evidence for hernia or obvious abnormality to the anterior abdominal wall. <Electronically signed by Lazaro Lehman > 10/01/20 [id number]
== END ==
LOC: M RAD 14:11
PROVIDERS: ATTEND Nurse Practitioner Family
DX: N83.9 Noninflammatory disorder of ovary, fallopian tube and broad ligament, unspecified (principal)

== ENCOUNTER 2020-10-11 09:24 | Outpatient (RCR) | payer OTHER | END 2020-10-12 | LOC: M PT 09:24 | PROVIDERS: ATTEND Specialist | DX: M54.2 Cervicalgia (principal); M47.812 Spondylosis without myelopathy or radiculopathy, cervical region ==

== ENCOUNTER 2020-10-18 09:30 | Outpatient (RCR) | payer OTHER | END 2020-11-12 | LOC: M PT 09:30 | PROVIDERS: ATTEND Specialist | DX: M54.2 Cervicalgia (principal) ==

== ENCOUNTER → 2020-11-21 | Outpatient (CLI) | payer OTHER | LOC: M WHC 10:58 | PROVIDERS: ATTEND Obstetrics & Gynecology | DX: Z53.9 Procedure and treatment not carried out, unspecified reason (principal); N83.201 Unspecified ovarian cyst, right side ==

== ENCOUNTER → 2021-01-08 | Outpatient (CLI) | payer OTHER ==
--- NOTE | 2021-01-08 15:56 | REP ---
INDICATION: N83.201 RT OVARIAN CYST. COMPARISON: Comparison pelvic sonography October 01, 2020.. TECHNIQUE: Transabdominal and transvaginal scanning were performed. FINDINGS: Uterine dimensions are normal at 6.6 x 4.4 x 3.7 cm. Endometrial echo is 1.0 cm thick and centrally placed. No free fluid is seen in the cul-de-sac. Visualized bladder alonso are smooth. Nabothian cysts are seen in the cervix. The right ovary has dimensions of 6.1 x 4.4 x 5.2 cm. It's Doppler flow is normal with a resistive index of 0.51. There is a 3.9 x 3.4 x 3.4 cm cyst in the right ovary. The left ovary dimensions are normal as well at 2.8 x 1.6 x 1.7 cm. It's Doppler flow was normal with resistive index of 0.57. No left ovarian abnormality. IMPRESSION: 3.9 cm right ovarian cyst. This is anechoic without mural nodularity or septum. It is centrally unchanged from the comparison study October 01, 2020.. <Electronically signed by Jose Davies > 01/08/21 [id number]
== END ==
LOC: M WHC 14:13
PROVIDERS: ATTEND Obstetrics & Gynecology
DX: N83.201 Unspecified ovarian cyst, right side (principal)

== ENCOUNTER 2021-02-01 15:12 | Emergency (ER) | payer OTHER ==
[~2021-02-01] VITALS: Ht 165.1 cm; Wt 142.1 kg
[2021-02-01 17:22] LABS: BASO # 0.1 10^3/uL (0.0-0.2); BASO % 0.8 % (0.0-1.0); EOS # 0.6 10^3/uL (0.0-0.5); HEMATOCRIT 40.1 % (36.0-47.0); HEMOGLOBIN 13.7 g/dl (12.0-15.5); LYMPH # 2.5 10^3/uL (1.5-5.0); LYMPH % 22.4 % (24.0-44.0); MEAN CORPUSCULAR HEMOGLOBIN 30.9 pg (27.0-33.0); MEAN CORPUSCULAR HGB CONC 34.2 g/dl (32.0-36.5); MEAN CORPUSCULAR VOLUME 90.3 fl (80.0-96.0); MONO # 1.1 10^3/uL (0.0-0.8); MONO % 10.1 % (2.0-8.0); NEUTROPHILS # 6.8 10^3/uL (1.5-8.5); NEUTROPHILS % 61.3 % (36.0-66.0); PLATELET COUNT, AUTOMATED 364 10^3/uL (150-450); RED BLOOD COUNT 4.44 10^6/uL (4.00-5.40); WHITE BLOOD COUNT 11.2 10^3/uL (4.0-10.0)
[2021-02-01 17:51] LABS: RSV AMPLIFICATION NEGATIVE (NEGATIVE)
--- NOTE | 2021-02-01 17:55 | REP ---
INDICATION: sob COMPARISON: 06/11/2017 TECHNIQUE: Portable AP view of the chest FINDINGS: The mediastinum and cardiac silhouette are stable and within normal limits for portable technique. The lung zeng are clear without acute consolidation, effusion, or pneumothorax. Skeletal structures are intact. IMPRESSION: No acute cardiopulmonary process appreciated. <Electronically signed by Lazaro Lehman > 02/01/21 [id number]
[2021-02-01 17:56] LABS: BLOOD UREA NITROGEN 11 MG/DL (7-18); CARBON DIOXIDE LEVEL 24 MEQ/L (21-32); CHLORIDE LEVEL 107 MEQ/L (98-107); CK-MB VALUE MASS 1.3 NG/ML (<3.6); CPK CREATINE PHOSPHOKINASE 235 U/L (26-192); CREATININE FOR GFR 0.94 MG/DL (0.55-1.30); GLOMERULAR FILTRATION RATE > 60.0 (>60); GLUCOSE, FASTING 80 MG/DL (70-100); MB/CK RELATIVE INDEX 0.55 (< OR =4); NT-PRO BNP 364 PG/ML (<125); POTASSIUM SERUM 5.9 MEQ/L (3.5-5.1); SODIUM LEVEL 136 MEQ/L (136-145); TROPONIN I < 0.02 NG/ML (< 0.10)
[2021-02-01] MEDS ORDERED: ISOVUE-370 76% 100ML VIAL As Ordered ONE (18:58)
--- NOTE | 2021-02-01 19:33 | ECGEPIP ---
[facility] - ED Test Date: 2021-02-01 Pat Name: KAMAR CUEVAS Department: Room: - Gender: Female Report Specialist: ROSALINA : 1985 Requested By: Kassi Merritt Order Number: [id number] Reading MD: Kassi Merritt Measurements Intervals [place] Rate: 103 P: 36 GA: 136 QRS: 66 QRSD: 74 T: -5 QT: 382 QTc: 500 Interpretive Statements Sinus tachycardia with premature supraventricular complexes Abnormal QRS-T angle, consider primary T wave abnormality Prolonged QTc cw 11/14/[address] T wave changes Electronically Signed on 02-01-2021 19:33:18 EDT by Kassi Merritt
--- NOTE | 2021-02-01 20:08 | REPVR ---
PROCEDURE INFORMATION: Exam: CTA Chest With Contrast Exam date and time: 02/01/2021 7:23 PM Age: 35 years old Clinical indication: Shortness of breath; Additional info: SOB TECHNIQUE: Imaging protocol: Computed tomographic angiography of the chest with contrast. Axial, coronal and sagittal reformatted images were created and reviewed. 3D rendering (Not supervised by radiologist): MIP and/or 3D reconstructed images were created by the technologist. Radiation optimization: All CT scans at this facility use at least one of these dose optimization techniques: automated exposure control; mA and/or kV adjustment per patient size (includes targeted exams where dose is matched to clinical indication); or iterative reconstruction. Contrast material: ISOVUE 370; Contrast volume: 100 ml; Contrast route: INTRAVENOUS (IV); COMPARISON: CR Chest, 1 view 02/01/2021 4:59 PM FINDINGS: Pulmonary arteries: Contrast opacification satisfactory. No intraluminal filling defect. Aorta: Unremarkable. No aneurysm or dissection. Lungs: Unremarkable. No consolidation. No mass. Pleural spaces: Unremarkable. No pneumothorax. No pleural effusion. Heart: Unremarkable. No cardiomegaly. No pericardial effusion. Mediastinal space: Small hiatal hernia. Lymph nodes: No pathologically enlarged lymph nodes. Pancreas: 3.1 x 3 cm low-density lesion in the pancreatic body. Bones/joints: No acute osseous abnormality. Mild degenerative changes. Soft tissues: Unremarkable. IMPRESSION: 1. No CT evidence of pulmonary embolism. 2. : 3.1 x 3 cm low-density lesion in the pancreatic body, possibly a cyst or pseudocyst. MRI is suggested to exclude cystic neoplasm, if clinically indicated. 3. Additional findings, as above. Electronically signed by: Edgar Meza On 02/01/2021 20:08:47 PM
[2021-02-01 20:30] VITALS: BP 127/68
[2021-02-01] MEDS ORDERED: holter monitor (20:46)
--- NOTE | 2021-02-04 12:37 | ED PDOC ---
Post-Departure Follow-Up cta chest faxed to [facility] for fu Kassi Conner MD Feb 04, 2021 12:37
== END 2021-02-01 21:09 | disposition home or self-care (01) ==
LOC: M ED 15:12
DX: R00.2 Palpitations (principal); R06.02 Shortness of breath; F33.9 Major depressive disorder, recurrent, unspecified; F41.9 Anxiety disorder, unspecified; F90.9 Attention-deficit hyperactivity disorder, unspecified type; Z79.899 Other long term (current) drug therapy
CPT/HCPCS: 36415; 71045; 71275; 80048; 82550; 82553; 83880; 84439; 84443; 85025; 87631; 93005; 99284; Q9967

== ENCOUNTER → 2021-03-19 | Outpatient (CLI) | payer OTHER ==
[~2021-03-19] MED LIST changes: +holter monitor
[2021-03-19 11:13] LABS: BASO # 0.1 10^3/uL (0.0-0.2); BASO % 0.8 % (0.0-1.0); EOS # 0.4 10^3/uL (0.0-0.5); EOS % 5.6 % (0.0-3.0); HEMATOCRIT 39.4 % (36.0-47.0); HEMOGLOBIN 13.2 g/dl (12.0-15.5); LYMPH # 2.1 10^3/uL (1.5-5.0); LYMPH % 28.9 % (24.0-44.0); MEAN CORPUSCULAR HEMOGLOBIN 29.9 pg (27.0-33.0); MEAN CORPUSCULAR HGB CONC 33.5 g/dl (32.0-36.5); MEAN CORPUSCULAR VOLUME 89.3 fl (80.0-96.0); MONO # 0.7 10^3/uL (0.0-0.8); MONO % 9.6 % (2.0-8.0); NEUTROPHILS # 3.9 10^3/uL (1.5-8.5); NEUTROPHILS % 54.8 % (36.0-66.0); PLATELET COUNT, AUTOMATED 374 10^3/uL (150-450); RED BLOOD COUNT 4.41 10^6/uL (4.00-5.40); WHITE BLOOD COUNT 7.2 10^3/uL (4.0-10.0)
[2021-03-19 14:03] LABS: BLOOD UREA NITROGEN 13 MG/DL (7-18); CALCIUM LEVEL 10.4 MG/DL (8.5-10.1); CARBON DIOXIDE LEVEL 29 MEQ/L (21-32); CHLORIDE LEVEL 104 MEQ/L (98-107); CREATININE FOR GFR 0.68 MG/DL (0.55-1.30); GLOMERULAR FILTRATION RATE > 60.0 (>60); GLUCOSE, FASTING 84 MG/DL (70-100); LIPASE 72 U/L (73-393); POTASSIUM SERUM 4.2 MEQ/L (3.5-5.1); SODIUM LEVEL 139 MEQ/L (136-145); THYROID STIMULATING HORMONE 0.966 uIU/ML (0.358-3.740)
== END ==
LOC: M LAB 10:18
PROVIDERS: ATTEND Nurse Practitioner Family
DX: R00.2 Palpitations (principal); K86.9 Disease of pancreas, unspecified

== ENCOUNTER → 2021-05-24 | Outpatient (CLI) | payer OTHER ==
[~2021-05-24] MED LIST changes: +SYMB16INH INH
== END ==
LOC: M LABSMTC 09:58
PROVIDERS: ATTEND Anesthesiology
DX: Z01.812 Encounter for preprocedural laboratory examination (principal); Z20.822 Contact with and (suspected) exposure to COVID-19

== ENCOUNTER 2021-05-29 07:55 | Day surgery (SDC) | payer OTHER ==
[2021-05-29] VITALS (9 sets, daily range): BP systolic 104–122; BP diastolic 55–67; O2SAT 93–99
[~2021-05-29] VITALS: Ht 162.6 cm; Wt 140.6 kg
[~2021-05-29 07:55] MED LIST changes: +LR 1,000 ML IV ONE; +ceFAZolin SOD 2 GM in IV 1 EA IV ONE
[2021-05-29] MEDS ORDERED: ROCURONIUM BROMIDE 50 MG/5 ML VIAL As Ordered ONE ×2 (08:16→10:09)
[2021-05-29] MEDS ORDERED: MIDAZOLAM INJ 2MG/2ML VIAL (J2250 PER 1MG) As Ordered ONE (08:16)
[2021-05-29] MEDS ORDERED: LIDOCAINE 2% 100MG/5ML SDV (FOR ANES.) As Ordered ONE (08:16)
[2021-05-29] MEDS ORDERED: propofoL 200 MG/20 ML VIAL As Ordered ONE (08:16)
[2021-05-29] MEDS ORDERED: fentaNYL 250 MCG/5 ML INJECTION (J3010) As Ordered ONE (08:16)
[2021-05-29 09:03] LABS: HEMATOCRIT 37.2 % (36.0-47.0); HEMOGLOBIN 12.6 g/dl (12.0-15.5); MEAN CORPUSCULAR HEMOGLOBIN 29.8 pg (27.0-33.0); MEAN CORPUSCULAR HGB CONC 33.9 g/dl (32.0-36.5); MEAN CORPUSCULAR VOLUME 87.9 fl (80.0-96.0); PLATELET COUNT, AUTOMATED 335 10^3/uL (150-450); RED BLOOD COUNT 4.23 10^6/uL (4.00-5.40); WHITE BLOOD COUNT 6.4 10^3/uL (4.0-10.0)
[2021-05-29] MEDS ORDERED: BUPIVACAINE HCL 0.25% 10ML VIAL As Ordered ONE (09:07)
[2021-05-29] MEDS ORDERED: LACRILUBE (AKWA TEARS) OPHTH OINT 3.5 GM As Ordered ONE (09:35)
[2021-05-29] MEDS ORDERED: SCOPOLAMINE 1MG TRANSDERMAL PATCH As Ordered ONE (10:07)
[2021-05-29] MEDS ORDERED: HYDROmorphone HCL 2 MG/ML 1ML VIAL As Ordered ONE (10:11)
[2021-05-29] MEDS ORDERED: METOCLOPRAMIDE INJ 10MG/2ML VIAL (J2765 PER 1) As Ordered ONE (10:15)
[2021-05-29] MEDS ORDERED: KETOROLAC 60MG 2ML VIAL As Ordered ONE (10:15)
[2021-05-29] MEDS ORDERED: ACETAMINOPHEN 1000MG 100ML IV BTL (OFIRMEV) (J0131 PER 10MG) As Ordered ONE (10:16)
[2021-05-29] MEDS ORDERED: SUGAMMADEX SODIUM 500 MG/5 ML VIAL (BRIDION) As Ordered ONE (10:16)
[2021-05-29] MEDS ORDERED: ONDANSETRON 4MG/2ML VIAL As Ordered ONE (10:16)
[2021-05-29] MEDS ORDERED: dexameTHASONE 4 MG/ML 1ML VIAL (J1100 PER 1MG) As Ordered ONE (10:16)
[2021-05-29] MEDS ORDERED: LR 1,000 ML IV SCH (11:20)
[2021-05-29] MEDS ORDERED: PERCOCET 5MG/325MG TAB PO PRN (11:20)
[2021-05-29] MEDS ORDERED: ONDANSETRON 4MG/2ML VIAL IV PRN ×2 (11:20)
[2021-05-29] MEDS: fentaNYL 100 MCG/2 ML INJECTION (J3010) IV PRN ×2 (11:24→11:31)
[2021-05-29] MEDS: oxyCODONE 5MG TAB PO PRN ×2 (11:24→12:14)
--- NOTE | 2021-05-29 11:30 | ROOPDOC ---
[facility] Report Of Operation Report of Operation DATE OF PROCEDURE: 05/29/21 OPERATIVE REPORT: Preoperative diagnosis: Menorrhagia, dysmenorrhea. Postoperative diagnosis: Same. Procedure: Robotic-assisted laparoscopic hysterectomy, right salpingo- oophorectomy, left salpingectomy, cystoscopy. Surgeon: Akash Hermosillo M.D. Cleaner And Trimmer: Dorothy Varela NP Findings: Normal size uterus. Stage III endometriosis with a 4 cm endometrioma involving the right ovary. Adhesions of the right ovary to the right pelvic sidewall and posterior uterus and cervix. Adhesions of sigmoid colon to the posterior cul-de-sac. Normal left ovary. EBL: 200 mL's. Urine output: 100 mL's. Operative summary: Patient was taken to the operating room where general endotracheal anesthesia was induced. She was prepped and draped in sterile fashion in the dorsal lithotomy position. A Li Catheter was placed. A Tactiga uterine manipulator was placed. A Periumbilical incision was made with a scalpel. A Veress needle was placed through this incision. Intra-abdominal location of Veress needle was assessed with saline filled syringe. A pneumoperitoneum was created. The Veress needle was removed. An 8 mm trocar using the Visiport was inserted through this incision. Three 8 mm suprapubic ports were placed under direct visualization. The patient was placed in Trendelenburg position. The da [place] surgical robot was docked to the ports. Using the fenestrated bipolar instrument and vessel sealer, the broad ligament attachments to the fallopian tubes were coagulated and incised. The round ligaments were coagulated and incised. The anterior and posterior leaves of the broad ligament were . Bladder flap was created. The right ovary was dissected off the posterior uterus with a combination of blunt and sharp dissection. The endometrioma was drained to assist in visualization. The uterine vessels were coagulated and incised using monopolar Endo Marianne. A colpotomy was created in the upper vagina at the level of the V care Cup. The specimen including the uterus, cervix, and fallopian tubes was removed through the vagina. The right IP ligament was coagulated and incised. The right ovary was peeled off the right pelvic sidewall combination of blunt and sharp dissection. The ureter was visualized close to the ovary during this process. The right ovary was placed in the vagina. The vaginal cuff was closed with #1 V lock suture in running fashion. Cystoscopy was performed using a 70 cystoscope. Bilateral ureteral jets were identified. No evidence of injury to the bladder. The cystoscope was removed. All instruments removed. The skin was closed with 4-0 Monocryl subcuticular sutures. Dorothy Varela NP assisted with all aspects of the procedure. She helped position the patient. She helped insert the ports and manipulate the uterus. She removed the specimen. AKASH HERMOSILLO MD May 29, 2021 11:30
[2021-05-29] MEDS ORDERED: OXYC1TAB23 PO (11:31)
[2021-05-29] MEDS ORDERED: IBUP-1022 PO (11:32)
[2021-05-29] MEDS: DOCUSATE SODIUM 100MG CAPSULE PO SCH ×2 (13:00→21:54)
[2021-05-29] MEDS ORDERED: KETOROLAC 30 MG/ML 1ML VIAL IV PRN (17:00)
[2021-05-30] VITALS: BP 94/53
--- NOTE | 2021-05-30 00:38 | ECGEPIP ---
[facility] Test Date: 2021-05-29 Pat Name: KAMAR CUEVAS Department: Room: - Gender: Female Isotope Hydrologist: zulay : 1985 Requested By: JONATHON ROBERTS Order Number: [id number] Reading MD: Magno Gallagher Measurements Intervals [place] Rate: 82 P: 32 FL: 142 QRS: 63 QRSD: 72 T: -7 QT: 388 QTc: 453 Interpretive Statements Normal sinus rhythm Abnormal QRS-T angle, consider primary T wave abnormality Compared to prior tracings in the system. No remarkable changes Electronically Signed on 05-30-2021 0:38:38 EST by Magno Gallagher
[2021-05-30 04:00] VITALS: BP 116/59
[2021-05-30] MEDS: NORCO, ANEXSIA 5/325MG TABLET (HYDROcodone/ACETAMINOPHEN) PO PRN ×2 (04:19→10:21)
[2021-05-30] MEDS: DOCUSATE SODIUM 100MG CAPSULE PO SCH (08:30)
[2021-05-30 08:42] VITALS: BP 110/56
[2021-05-30] MEDS ORDERED: HYDR-3713 PO (09:41)
== END 2021-05-30 10:30 | disposition home or self-care (01) ==
LOC: M SDC 07:55 → M PED 12:52 → M SDC 05-30 10:30
PROVIDERS: ATTEND Specialist
DX: N80.1 Endometriosis of ovary (principal); N83.01 Follicular cyst of right ovary; N92.0 Excessive and frequent menstruation with regular cycle; N94.6 Dysmenorrhea, unspecified; N73.6 Female pelvic peritoneal adhesions (postinfective); R00.2 Palpitations; K21.9 Gastro-esophageal reflux disease without esophagitis; M51.9 Unspecified thoracic, thoracolumbar and lumbosacral intervertebral disc disorder; F41.9 Anxiety disorder, unspecified; F90.9 Attention-deficit hyperactivity disorder, unspecified type; F31.9 Bipolar disorder, unspecified; J45.909 Unspecified asthma, uncomplicated; Z91.040 Latex allergy status; Z79.899 Other long term (current) drug therapy; Z79.51 Long term (current) use of inhaled steroids
CPT/HCPCS: 36415; 58571; 81025; 85027; 86850; 86900; 86901; 88307; 93005; 96374; J0131; J0690; J1100; J1170; J1885; J2250; J2405; J2765; J3010; S2900; U0002

== ENCOUNTER → 2021-08-13 | Outpatient (CLI) | payer OTHER ==
[~2021-08-13] MED LIST changes: +HYDR-3713 PO; +IBUP-1022 PO; -LR 1,000 ML IV ONE; -MONT10TA10 PO; +MONT10TA97 PO; +OXYC1TAB23 PO; -ceFAZolin SOD 2 GM in IV 1 EA IV ONE
== END ==
LOC: M RAD 12:36
PROVIDERS: ATTEND Nurse Practitioner Family
DX: M54.50 Low back pain, unspecified (principal); M48.061 Spinal stenosis, lumbar region without neurogenic claudication; M48.07 Spinal stenosis, lumbosacral region

== ENCOUNTER 2021-08-22 10:15 | Outpatient (RCR) | payer OTHER | END 2021-09-12 | LOC: M PT 10:15 | PROVIDERS: ATTEND Nurse Practitioner Family | DX: M54.50 Low back pain, unspecified (principal) ==

== ENCOUNTER → 2022-01-27 | Outpatient (CLI) | payer OTHER ==
[2022-01-27 17:06] LABS: BASO # 0.1 10^3/uL (0.0-0.2); BASO % 0.7 % (0.0-1.0); EOS # 0.4 10^3/uL (0.0-0.5); EOS % 4.3 % (0.0-3.0); HEMATOCRIT 36.9 % (36.0-47.0); HEMOGLOBIN 12.3 g/dl (12.0-15.5); LYMPH # 1.9 10^3/uL (1.5-5.0); MEAN CORPUSCULAR HEMOGLOBIN 29.6 pg (27.0-33.0); MEAN CORPUSCULAR HGB CONC 33.3 g/dl (32.0-36.5); MEAN CORPUSCULAR VOLUME 88.7 fl (80.0-96.0); MONO # 0.7 10^3/uL (0.0-0.8); MONO % 9.1 % (2.0-8.0); NEUTROPHILS % 61.5 % (36.0-66.0); PLATELET COUNT, AUTOMATED 338 10^3/uL (150-450); RED BLOOD COUNT 4.16 10^6/uL (4.00-5.40); WHITE BLOOD COUNT 8.1 10^3/uL (4.0-10.0)
[2022-01-27 17:54] LABS: ALBUMIN 3.6 GM/DL (3.2-5.2); ALT/SGPT 37 U/L (12-78); BILIRUBIN,TOTAL 0.3 MG/DL (0.2-1.0); BLOOD UREA NITROGEN 15 MG/DL (7-18); CALCIUM LEVEL 9.4 MG/DL (8.5-10.1); CARBON DIOXIDE LEVEL 27 MEQ/L (21-32); CHLORIDE LEVEL 106 MEQ/L (98-107); CHOLESTEROL LEVEL 190 MG/DL (<200); CREATININE FOR GFR 0.69 MG/DL (0.55-1.30); FREE T4 0.89 NG/DL (0.76-1.46); GLOMERULAR FILTRATION RATE > 60.0 (>60); GLUCOSE, FASTING 97 MG/DL (70-100); HDL CHOLESTEROL 50 MG/DL (>40); LDL CHOLESTEROL 113 MG/DL (<100); NON-HDL-C 140 MG/DL; POTASSIUM SERUM 4.2 MEQ/L (3.5-5.1); SODIUM LEVEL 136 MEQ/L (136-145); TOTAL PROTEIN 7.3 GM/DL (6.4-8.2); TRIGLYCERIDES LEVEL 135 MG/DL (<150)
[2022-01-27 18:16] LABS: TOTAL 25(OH) VITAMIN D 30.3 NG/ML (30.0-100.0)
== END ==
LOC: M LAB 16:23 → M PLALAB 16:23
PROVIDERS: ATTEND Nurse Practitioner Family
DX: J45.20 Mild intermittent asthma, uncomplicated (principal); E55.9 Vitamin D deficiency, unspecified; Z13.228 Encounter for screening for other metabolic disorders; Z13.220 Encounter for screening for lipoid disorders

== ENCOUNTER → 2022-03-10 | Outpatient (REF) | payer OTHER | LOC: M SFHCPLAZ 12:44 | PROVIDERS: ATTEND Physician Assistant | DX: J02.9 Acute pharyngitis, unspecified (principal) ==

== ENCOUNTER → 2022-09-01 | Outpatient (CLI) | payer OTHER ==
[2022-09-01 12:09] LABS: BASO # 0.1 10^3/uL (0.0-0.2); BASO % 0.8 % (0.0-1.0); EOS # 0.6 10^3/uL (0.0-0.5); EOS % 7.6 % (0.0-3.0); HEMATOCRIT 38.4 % (36.0-47.0); HEMOGLOBIN 12.7 g/dl (12.0-15.5); LYMPH # 1.9 10^3/uL (1.5-5.0); LYMPH % 24.1 % (24.0-44.0); MEAN CORPUSCULAR HEMOGLOBIN 29.6 pg (27.0-33.0); MEAN CORPUSCULAR HGB CONC 33.1 g/dl (32.0-36.5); MEAN CORPUSCULAR VOLUME 89.5 fl (80.0-96.0); MONO # 0.8 10^3/uL (0.0-0.8); MONO % 10.4 % (2.0-8.0); NEUTROPHILS # 4.5 10^3/uL (1.5-8.5); NEUTROPHILS % 56.8 % (36.0-66.0); PLATELET COUNT, AUTOMATED 342 10^3/uL (150-450); RED BLOOD COUNT 4.29 10^6/uL (4.00-5.40); WHITE BLOOD COUNT 7.9 10^3/uL (4.0-10.0)
[2022-09-01 12:24] LABS: HEMOGLOBIN A1c 4.9 % (4.0-6.0)
[2022-09-01 12:59] LABS: ALBUMIN 3.7 G/DL (3.2-5.2); ALKALINE PHOSPHATASE 58 U/L (46-116); ALT/SGPT 44 U/L (7.0-40); AST/SGOT 23 U/L (<34); BILIRUBIN,TOTAL 0.5 MG/DL (0.3-1.2); BLOOD UREA NITROGEN 9 MG/DL (9-23); CALCIUM LEVEL 8.6 MG/DL (8.5-10.1); CARBON DIOXIDE LEVEL 29 MMOL/L (20-31); CHLORIDE LEVEL 105 MMOL/L (98-107); CREATININE FOR GFR 0.69 MG/DL (0.55-1.30); GLOMERULAR FILTRATION RATE > 60.0 (>60); GLUCOSE, FASTING 87 MG/DL (60-100); POTASSIUM SERUM 4.2 MMOL/L (3.5-5.1); SODIUM LEVEL 137 MMOL/L (136-145); THYROID STIMULATING HORMONE 0.988 uIU/ML (0.55-4.78)
== END ==
LOC: M LAB 11:15
PROVIDERS: ATTEND Nurse Practitioner Family
DX: R63.5 Abnormal weight gain (principal); Z13.1 Encounter for screening for diabetes mellitus

== ENCOUNTER → 2022-11-19 | Outpatient (CLI) | payer OTHER | LOC: M WHC 09:27 | PROVIDERS: ATTEND Physician Assistant | DX: N63.11 Unspecified lump in the right breast, upper outer quadrant (principal) ==

== ENCOUNTER 2023-04-07 17:26 | Emergency (ER) | payer OTHER ==
[~2023-04-07] VITALS: Ht 165.1 cm; Wt 157.7 kg
[2023-04-07 17:27] VITALS: TEMP 97.6
[2023-04-07 20:05] LABS: BASO # 0.1 10^3/uL (0.0-0.2); BASO % 0.7 % (0.0-1.0); EOS # 0.8 10^3/uL (0.0-0.5); EOS % 11.4 % (0.0-3.0); HEMATOCRIT 36.4 % (36.0-47.0); HEMOGLOBIN 12.6 g/dl (12.0-15.5); LYMPH # 2.2 10^3/uL (1.5-5.0); LYMPH % 30.7 % (24.0-44.0); MEAN CORPUSCULAR HGB CONC 34.6 g/dl (32.0-36.5); MEAN CORPUSCULAR VOLUME 86.7 fl (80.0-96.0); MONO # 0.6 10^3/uL (0.0-0.8); MONO % 8.3 % (2.0-8.0); NEUTROPHILS # 3.5 10^3/uL (1.5-8.5); NEUTROPHILS % 48.5 % (36.0-66.0); PLATELET COUNT, AUTOMATED 355 10^3/uL (150-450); WHITE BLOOD COUNT 7.2 10^3/uL (4.0-10.0)
[2023-04-07 20:27] LABS: CK-MB VALUE MASS 1.6 NG/ML (<3.6)
[2023-04-07 20:28] LABS: BLOOD UREA NITROGEN 14 MG/DL (9-23); CALCIUM LEVEL 9.5 MG/DL (8.5-10.1); CARBON DIOXIDE LEVEL 28 MMOL/L (20-31); CHLORIDE LEVEL 105 MMOL/L (98-107); CPK CREATINE PHOSPHOKINASE 148 U/L (34-145); CREATININE FOR GFR 0.75 MG/DL (0.55-1.30); GLOMERULAR FILTRATION RATE > 60.0 (>60); GLUCOSE, FASTING 93 MG/DL (60-100); MB/CK RELATIVE INDEX 1.08 (< OR =4); POTASSIUM SERUM 4.1 MMOL/L (3.5-5.1); SODIUM LEVEL 139 MMOL/L (136-145)
[2023-04-07 20:31] LABS: FREE T4 0.97 NG/DL (0.89-1.76); THYROID STIMULATING HORMONE 2.212 uIU/ML (0.55-4.78)
[2023-04-07] MEDS ORDERED: ISOVUE-370 76% 100ML VIAL As Ordered ONE (20:36)
[2023-04-07 22:09] LABS: CK-MB VALUE MASS 1.2 NG/ML (<3.6)
[2023-04-07 22:11] LABS: MB/CK RELATIVE INDEX 0.88 (< OR =4)
[2023-04-07 23:01] VITALS: BP 132/76; O2SAT 98
== END 2023-04-07 23:16 | disposition home or self-care (01) ==
LOC: M ED 17:26
DX: R22.42 Localized swelling, mass and lump, left lower limb (principal); E55.9 Vitamin D deficiency, unspecified; Z91.040 Latex allergy status; Z79.51 Long term (current) use of inhaled steroids; Z79.1 Long term (current) use of non-steroidal anti-inflammatories (NSAID); Z79.899 Other long term (current) drug therapy
CPT/HCPCS: 36415; 71045; 71275; 80048; 82550; 82553; 83880; 84439; 84443; 85025; 93005; 93041; 93971; 94760; 99285; Q9967

== ENCOUNTER → 2023-05-05 | Outpatient (CLI) | payer OTHER | LOC: M PLAIMG 07:13 | PROVIDERS: ATTEND Nurse Practitioner Family | DX: K86.2 Cyst of pancreas (principal) ==

== ENCOUNTER → 2023-09-14 | Outpatient (CLI) | payer OTHER ==
[2023-09-14 11:21] LABS: BASO % 0.7 % (0.0-1.0); EOS # 0.4 10^3/uL (0.0-0.5); EOS % 6.2 % (0.0-3.0); HEMATOCRIT 38.7 % (36.0-47.0); LYMPH # 1.5 10^3/uL (1.5-5.0); MEAN CORPUSCULAR HEMOGLOBIN 29.5 pg (27.0-33.0); MEAN CORPUSCULAR HGB CONC 33.6 g/dl (32.0-36.5); MEAN CORPUSCULAR VOLUME 87.8 fl (80.0-96.0); MONO # 0.7 10^3/uL (0.0-0.8); MONO % 11.6 % (2.0-8.0); NEUTROPHILS # 3.5 10^3/uL (1.5-8.5); NEUTROPHILS % 56.3 % (36.0-66.0); PLATELET COUNT, AUTOMATED 336 10^3/uL (150-450); RED BLOOD COUNT 4.41 10^6/uL (4.00-5.40); WHITE BLOOD COUNT 6.1 10^3/uL (4.0-10.0)
[2023-09-14 11:45] LABS: HEMOGLOBIN A1c 5.3 % (4.0-6.0)
[2023-09-14 11:56] LABS: ALBUMIN 3.9 G/DL (3.2-5.2); ALKALINE PHOSPHATASE 56 U/L (46-116); ALT/SGPT 38 U/L (7.0-40); AST/SGOT 25 U/L (<34); BILIRUBIN,TOTAL 0.5 MG/DL (0.3-1.2); BLOOD UREA NITROGEN 13 MG/DL (9-23); CARBON DIOXIDE LEVEL 31 MMOL/L (20-31); CHLORIDE LEVEL 104 MMOL/L (98-107); CHOLESTEROL LEVEL 167 MG/DL (<200); CHOLESTEROL RISK RATIO 4.01 (<5); CREATININE FOR GFR 0.78 MG/DL (0.55-1.30); FREE T4 1.12 NG/DL (0.89-1.76); GLOMERULAR FILTRATION RATE > 60.0 (>60); GLUCOSE, FASTING 80 MG/DL (60-100); HDL CHOLESTEROL 41.6 MG/DL (>40); LDL CHOLESTEROL 100.6 MG/DL (<100); NON-HDL-C 125.4 MG/DL; SODIUM LEVEL 137 MMOL/L (136-145); TOTAL 25(OH) VITAMIN D 24.7 NG/ML (20.0-100.0); TOTAL PROTEIN 7.2 G/DL (5.7-8.2); TRIGLYCERIDES LEVEL 124 MG/DL (<150)
[2023-09-14 11:59] LABS: THYROID STIMULATING HORMONE 1.469 uIU/ML (0.55-4.78)
== END ==
LOC: M LAB 10:57
PROVIDERS: ATTEND Nurse Practitioner Family
DX: E55.9 Vitamin D deficiency, unspecified (principal); R53.83 Other fatigue; Z13.220 Encounter for screening for lipoid disorders; Z13.1 Encounter for screening for diabetes mellitus

== ENCOUNTER → 2024-01-18 | Outpatient (CLI) | payer OTHER | LOC: M RAD 12:58 | PROVIDERS: ATTEND Nurse Practitioner Adult Health | DX: J45.40 Moderate persistent asthma, uncomplicated (principal) ==

== ENCOUNTER → 2024-03-08 | Outpatient (CLI) | payer OTHER | LOC: M RAD 15:05 | PROVIDERS: ATTEND Nurse Practitioner Adult Health | DX: R91.8 Other nonspecific abnormal finding of lung field (principal) ==

== ENCOUNTER → 2024-03-17 | Outpatient (CLI) | payer OTHER | LOC: M SLEEP 20:00 | PROVIDERS: ATTEND Nurse Practitioner Adult Health | DX: R06.83 Snoring (principal) ==

== ENCOUNTER → 2024-05-20 | Outpatient (CLI) | payer OTHER ==
[~2024-05-20] MED LIST changes: -ADV100INH INH; -ADV250INH INH; +ADVA1AER8 INH; +ADVA1AER9 INH
== END ==
LOC: M PLAIMG 09:17
DX: R09.89 Other specified symptoms and signs involving the circulatory and respiratory systems (principal)

== ENCOUNTER → 2024-10-04 | Outpatient (CLI) | payer OTHER ==
[2024-10-04 12:11] LABS: BASO % 0.6 % (0.0-1.0); EOS # 0.4 10^3/uL (0.0-0.5); EOS % 6.8 % (0.0-3.0); LYMPH # 1.5 10^3/uL (1.5-5.0); LYMPH % 28.8 % (24.0-44.0); MEAN CORPUSCULAR HEMOGLOBIN 29.5 pg (27.0-33.0); MEAN CORPUSCULAR HGB CONC 33.3 g/dl (32.0-36.5); MEAN CORPUSCULAR VOLUME 88.5 fl (80.0-96.0); MONO # 0.7 10^3/uL (0.0-0.8); NEUTROPHILS # 2.7 10^3/uL (1.5-8.5); NEUTROPHILS % 50.4 % (36.0-66.0); PLATELET COUNT, AUTOMATED 313 10^3/uL (150-450); RED BLOOD COUNT 4.07 10^6/uL (4.00-5.40); WHITE BLOOD COUNT 5.3 10^3/uL (4.0-10.0)
[2024-10-04 12:38] LABS: ALBUMIN 3.6 G/DL (3.2-5.2); ALKALINE PHOSPHATASE 54 U/L (35-104); ALT/SGPT 36 U/L (7.0-40); AST/SGOT 23 U/L (<34); BILIRUBIN,TOTAL 0.3 MG/DL (0.3-1.2); BLOOD UREA NITROGEN 9 MG/DL (9-23); CALCIUM LEVEL 9.5 MG/DL (8.5-10.1); CARBON DIOXIDE LEVEL 29 MMOL/L (20-31); CHLORIDE LEVEL 107 MMOL/L (98-107); CHOLESTEROL LEVEL 154 MG/DL (<200); CHOLESTEROL RISK RATIO 3.58 (<5); CREATININE FOR GFR 0.69 MG/DL (0.55-1.30); GLOMERULAR FILTRATION RATE > 90.0 (>60); GLUCOSE, FASTING 86 MG/DL (60-100); HDL CHOLESTEROL 42.9 MG/DL (>40); LDL CHOLESTEROL 84.1 MG/DL (<100); NON-HDL-C 111.1 MG/DL; POTASSIUM SERUM 4.2 MMOL/L (3.5-5.1); SODIUM LEVEL 143 MMOL/L (136-145); TOTAL PROTEIN 7.1 G/DL (5.7-8.2); TRIGLYCERIDES LEVEL 135 MG/DL (<150)
[2024-10-04 12:40] LABS: FREE T4 1.23 NG/DL (0.89-1.76); THYROID STIMULATING HORMONE 1.255 uIU/ML (0.55-4.78)
== END ==
LOC: M LAB 11:36
PROVIDERS: ATTEND Nurse Practitioner Family
DX: Z00.00 Encounter for general adult medical examination without abnormal findings (principal); E55.9 Vitamin D deficiency, unspecified; F90.9 Attention-deficit hyperactivity disorder, unspecified type; R53.83 Other fatigue; Z13.220 Encounter for screening for lipoid disorders